=== PATIENT | female | born 1990 | race Caucasian/White ===

== ENCOUNTER 2017-03-04 14:02 | Emergency (ER) | payer MEDICARE, MEDICAID ==
[~2017-03-04] VITALS: Ht 157.5 cm; Wt 116.0 kg
[~2017-03-04 14:02] MED LIST: CARB200T PO; DOCU-30 PO; OMEP-110 PO; OXYC5CAP4 PO; PNV#1COM9 PO
[2017-03-04] MEDS ORDERED: PRED20TA PO (15:16)
[2017-03-04] MEDS ORDERED: SUCR1TAB PO (15:16)
[2017-03-04] MEDS ORDERED: CARB100T4 PO (15:16)
[2017-03-04] MEDS ORDERED: OMEP-110 PO (15:16)
[2017-03-04] MEDS ORDERED: CYCL5TAB PO (15:16)
[2017-03-04] MEDS ORDERED: TRAZ50TA18 PO (15:16)
[2017-03-04] MEDS ORDERED: ALBU6.7H PO (15:16)
[2017-03-04 15:50] LABS: PATH.CAST-FLAG NOT PRESENT; SPERM-FLAG NOT PRESENT; SRC-FLAG NOT PRESENT; XTAL-FLAG NOT PRESENT; YLC-FLAG NOT PRESENT
[2017-03-04 15:52] LABS: ASPARTATE AMINO TRANSFERASE 22 U/L (15-37); BLOOD UREA NITROGEN 17 mg/dL (7-18)
[2017-03-04 16:05] LABS: IS PT STATUS REG ER OR PRE ER? YES
[2017-03-04] MEDS ORDERED: OMNIPAQUE 350 MG/ML, 100ML BOTTLE ONE (16:59)
[2017-03-04 18:00] VITALS: BP 102/70
== END 2017-03-04 18:18 | disposition home or self-care (01) ==
LOC: ED 14:56
DX: R06.00 Dyspnea, unspecified (principal); N30.00 Acute cystitis without hematuria
CPT/HCPCS: 36415; 71275; 80053; 81001; 83690; 84484; 84703; 85025; 87086; 93005; 99285; Q9967

== ENCOUNTER → 2017-10-08 | Outpatient (CLI) | payer MEDICARE, MEDICAID ==
[~2017-10-08] MED LIST changes: +ALBU6.7H PO; +CARB100T4 PO; +CYCL5TAB PO; +DOCU-131 PO; -DOCU-30 PO; +GABA300C10 PO; +OXYC5CAP2 PO; -OXYC5CAP4 PO; +PRED20TA PO; +SUCR1TAB PO; +TRAZ50TA18 PO
[2017-10-08 13:11] LABS: BASOPHILS # (AUTO) 0.05 x10^3/uL (0-0.1); BASOPHILS % (AUTO) 0 % (0-1); EOSINOPHILS # (AUTO) 0.14 x10^3/uL (0-0.4); EOSINOPHILS % (AUTO) 1 % (1-7); LYMPHOCYTES # (AUTO) 2.75 x10^3/uL (1-3.4); LYMPHOCYTES % (AUTO) 27 % (22-44); MD NO; MEAN CORPUSCULAR HEMOGLOBIN 30.2 pg (27.0-34.8); MEAN CORPUSCULAR VOLUME 88.9 fL (80-100); MEAN PLATELET VOLUME 8.5 fL (7.4-10.4); MONOCYTES # (AUTO) 0.59 x10^3/uL (0.2-0.8); MONOCYTES % (AUTO) 6 % (2-9); NEUTROPHILS # (AUTO) 6.71 x10^3/uL (1.8-6.8); NEUTROPHILS % (AUTO) 66 % (42-75); PLATELET COUNT 326 x10^3/uL (130-400); RED BLOOD COUNT 5.39 x10^6/uL (3.82-5.3)
[2017-10-08 13:22] LABS: MICROSCOPIC INDICATED
[2017-10-08 13:23] LABS: CULTURE INDICATED? YES
[2017-10-08 13:25] LABS: ALANINE AMINOTRANSFERASE 31 U/L (12-78); ANION GAP 8 mmol/L (5-15); CALCIUM 8.8 mg/dL (8.5-10.1); CHLORIDE 107 mmol/L (98-107); CREATININE 0.82 mg/dL (0.55-1.02)
[2017-10-08 13:29] LABS: ALKALINE PHOSPHATASE 72 U/L (45-117); BILIRUBIN,TOTAL 0.5 mg/dL (0.2-1.0); TOTAL PROTEIN 7.9 g/dL (6.4-8.2)
== END | disposition home or self-care (01) ==
LOC: STAR 12:29
PROVIDERS: ATTEND Obstetrics & Gynecology
DX: Z01.818 Encounter for other preprocedural examination (principal); R82.99 Other abnormal findings in urine; Z90.722 Acquired absence of ovaries, bilateral
CPT/HCPCS: 36415; 80053; 81001; 84702; 85025; 87086

== ENCOUNTER 2017-10-17 05:38 | Day surgery (SDC) | payer MEDICARE, MEDICAID ==
[2017-10-08 13:43] VITALS: BP 110/64
[~2017-10-17] VITALS: Ht 157.5 cm; Wt 115.0 kg
[2017-10-17] MEDS ORDERED: LACTATED RINGERS 1,000 ML IV SCH (06:23)
[2017-10-17] MEDS ORDERED: LIDOCAINE 1%, 2ML SQ PRN (06:30)
[2017-10-17] MEDS ORDERED: BUPIVACAINE/PF 0.25% ONE (06:47)
[2017-10-17] MEDS ORDERED: SILVER NITRATE STICK TP ONE (06:47)
[2017-10-17] MEDS ORDERED: EPINEPHRINE 1 MG/ML, 1ML ONE (06:47)
[2017-10-17 06:56] LABS: HCG UR SG 1.028 (1.003-1.030)
[2017-10-17] MEDS ORDERED: MIDAZOLAM 1 MG/ML, 2ML ONE (07:10)
[2017-10-17] MEDS ORDERED: FENTANYL PF 100 MCG/2ML ONE ×3 (07:10→09:47)
[2017-10-17] MEDS ORDERED: KETOROLAC 30 MG/1 ML ONE (07:38)
[2017-10-17] MEDS ORDERED: hydrALAzine 20 MG/ML, 1ML IV PRN (08:30)
[2017-10-17] MEDS ORDERED: OXYcodone 5 MG/5 ML ORAL.SOL UDC PO PRN (08:30)
[2017-10-17] MEDS ORDERED: ONDANSETRON 2MG/ML, 2ML IVPush PRN (08:30)
[2017-10-17] MEDS ORDERED: METOPROLOL 1 MG/ML, 5ML IV PRN (08:30)
[2017-10-17] MEDS ORDERED: DIAZEPAM 5 MG/ML, 2ML IVPush PRN (08:30)
[2017-10-17] MEDS ORDERED: ALBUTEROL SULFATE 2.5 MG/3 ML NPPB PRN (08:30)
[2017-10-17] MEDS ORDERED: MIDAZOLAM 1 MG/ML, 2ML IV PRN (08:30)
[2017-10-17] MEDS ORDERED: ACETAMINOPHEN 325 MG TABLET PO PRN (08:30)
[2017-10-17] MEDS ORDERED: EPHEDRINE 50 MG/ML, 1ML IVPush PRN (08:30)
[2017-10-17] MEDS ORDERED: LABETALOL 5MG/ML, 20ML IV PRN (08:30)
[2017-10-17] MEDS ORDERED: PROMETHAZINE 25 MG/ML, 1ML IV PRN (08:30)
[2017-10-17] MEDS ORDERED: HYDROcodone/APAP 7.5-325MG/15ML UDC PO PRN (08:30)
[2017-10-17] MEDS ORDERED: MEPERIDINE/PF 25MG/0.5ML IVPush PRN (08:30)
[2017-10-17] MEDS ORDERED: HYDROmorphone 1 MG/ML, 1ML IV PRN (08:30)
[2017-10-17] MEDS ORDERED: ROCURONIUM 10 MG/ML,10ML ONE (09:27)
[2017-10-17] MEDS ORDERED: NEOSTIGMINE 1 MG/ML, 10ML ONE (09:27)
[2017-10-17] MEDS ORDERED: ONDANSETRON 2MG/ML, 2ML ONE (09:27)
[2017-10-17] MEDS ORDERED: DEXAMETHASONE 4 MG/ML, 1ML ONE (09:27)
[2017-10-17] MEDS ORDERED: PROPOFOL 10 MG/ML, 20ML ONE (09:27)
[2017-10-17] MEDS ORDERED: GLYCOPYRROLATE 0.2MG/1ML, 5ML ONE (09:27)
[2017-10-17] MEDS ORDERED: SUCCINYLCHOLINE 20 MG/ML, 10ML ONE (09:27)
[2017-10-17] MEDS ORDERED: ACETAMINOPHEN 325 MG TABLET ONE (09:47)
[2017-10-17] MEDS ORDERED: OXYcodone 5 MG/5 ML ORAL.SOL UDC ONE (09:47)
[2017-10-17] MEDS ORDERED: ACETAMINOPHEN 650 MG/20.3 ML UDC ONE (09:47)
[2017-10-17] MEDS: FENTANYL PF 100 MCG/2ML IV PRN ×2 (09:53→09:59)
== END 2017-10-17 11:00 ==
LOC: OUT 05:38
PROVIDERS: ATTEND Obstetrics & Gynecology
DX: Z30.2 Encounter for sterilization (principal); F32.9 Major depressive disorder, single episode, unspecified; Z90.49 Acquired absence of other specified parts of digestive tract; Z98.890 Other specified postprocedural states; J45.909 Unspecified asthma, uncomplicated; Z88.1 Allergy status to other antibiotic agents; Z91.010 Allergy to peanuts; Z88.8 Allergy status to other drugs, medicaments and biological substances; Z91.018 Allergy to other foods
CPT/HCPCS: 36415; 58661; 81025; 86850; 86900; 88302; J0171; J0330; J1100; J1885; J2250; J2405; J2704; J2710; J3010; J3490

== ENCOUNTER 2018-02-11 17:24 | Emergency (ER) | payer MEDICARE, MEDICAID ==
[~2018-02-11] VITALS: Ht 157.5 cm; Wt 118.5 kg
[2018-02-11 18:52] LABS: BASOPHILS # (AUTO) 0.04 x10^3/uL (0-0.1); BASOPHILS % (AUTO) 1 % (0-1); EOSINOPHILS # (AUTO) 0.18 x10^3/uL (0-0.4); EOSINOPHILS % (AUTO) 2 % (1-7); LYMPHOCYTES # (AUTO) 2.55 x10^3/uL (1-3.4); LYMPHOCYTES % (AUTO) 30 % (22-44); MD NO; MEAN CORPUSCULAR HEMOGLOBIN 30.4 pg (27.0-34.8); MEAN CORPUSCULAR HGB CONC 34.1 g/dL (32.4-35.8); MEAN CORPUSCULAR VOLUME 89.2 fL (80-100); MEAN PLATELET VOLUME 8.6 fL (7.4-10.4); MONOCYTES % (AUTO) 6 % (2-9); NEUTROPHILS # (AUTO) 5.15 x10^3/uL (1.8-6.8); NEUTROPHILS % (AUTO) 61 % (42-75); PLATELET COUNT 360 x10^3/uL (130-400); RED BLOOD COUNT 5.38 x10^6/uL (3.82-5.3); RED CELL DISTRIBUTION WIDTH 13.2 % (9.6-15.2)
[2018-02-11 19:02] LABS: ALANINE AMINOTRANSFERASE 46 U/L (12-78); ALBUMIN 3.8 g/dL (3.4-5.0); ANION GAP 9 mmol/L (5-15); CALCIUM 9.1 mg/dL (8.5-10.1); CHLORIDE 107 mmol/L (98-107); CREATININE 0.78 mg/dL (0.55-1.02)
[2018-02-11 19:07] LABS: ALKALINE PHOSPHATASE 64 U/L (45-117); BILIRUBIN,TOTAL 0.2 mg/dL (0.2-1.0); TOTAL PROTEIN 7.4 g/dL (6.4-8.2)
[2018-02-11] MEDS ORDERED: OXYC5CAP2 PO (20:10)
[2018-02-11 20:59] LABS: CULTURE INDICATED? NO; MICROSCOPIC AUTO
[2018-02-11] MEDS ORDERED: OXYcodone/APAP 5/325MG TABLET PO ONE (21:00)
[2018-02-11] MEDS ORDERED: OXYcodone/APAP 5/325MG TABLET ONE (21:06)
[2018-02-11 21:30] VITALS: BP 128/83
== END 2018-02-11 21:38 | disposition home or self-care (01) ==
LOC: ED 21:32
DX: N93.8 Other specified abnormal uterine and vaginal bleeding (principal); Z98.51 Tubal ligation status; Z90.49 Acquired absence of other specified parts of digestive tract; F17.200 Nicotine dependence, unspecified, uncomplicated
CPT/HCPCS: 36415; 76830; 80053; 81001; 84703; 85025; 99285

== ENCOUNTER → 2018-04-06 | Outpatient (CLI) | payer MEDICARE, MEDICAID ==
[2018-04-06 14:07] LABS: BASOPHILS # (AUTO) 0.04 x10^3/uL (0-0.1); BASOPHILS % (AUTO) 0 % (0-1); EOSINOPHILS # (AUTO) 0.23 x10^3/uL (0-0.4); EOSINOPHILS % (AUTO) 2 % (1-7); LYMPHOCYTES # (AUTO) 2.63 x10^3/uL (1-3.4); LYMPHOCYTES % (AUTO) 24 % (22-44); MD NO; MEAN CORPUSCULAR HEMOGLOBIN 30.1 pg (27.0-34.8); MEAN CORPUSCULAR HGB CONC 34.1 g/dL (32.4-35.8); MEAN PLATELET VOLUME 8.4 fL (7.4-10.4); MONOCYTES # (AUTO) 0.41 x10^3/uL (0.2-0.8); MONOCYTES % (AUTO) 4 % (2-9); NEUTROPHILS # (AUTO) 7.46 x10^3/uL (1.8-6.8); NEUTROPHILS % (AUTO) 69 % (42-75); PLATELET COUNT 330 x10^3/uL (130-400); RED BLOOD COUNT 5.13 x10^6/uL (3.82-5.3); RED CELL DISTRIBUTION WIDTH 12.9 % (9.6-15.2)
[2018-04-06 14:20] LABS: ALBUMIN 3.7 g/dL (3.4-5.0); ANION GAP 10 mmol/L (5-15); CALCIUM 8.9 mg/dL (8.5-10.1); CHLORIDE 107 mmol/L (98-107)
[2018-04-06 14:23] LABS: CULTURE INDICATED? YES; MICROSCOPIC INDICATED
[2018-04-06 14:28] LABS: ALANINE AMINOTRANSFERASE 46 U/L (12-78); ALKALINE PHOSPHATASE 66 U/L (45-117); BILIRUBIN,TOTAL 0.6 mg/dL (0.2-1.0); CREATININE 0.89 mg/dL (0.55-1.02); TOTAL PROTEIN 7.1 g/dL (6.4-8.2)
== END | disposition home or self-care (01) ==
LOC: STAR 13:16
PROVIDERS: ATTEND Obstetrics & Gynecology
DX: Z01.818 Encounter for other preprocedural examination (principal); N92.0 Excessive and frequent menstruation with regular cycle; N85.9 Noninflammatory disorder of uterus, unspecified
CPT/HCPCS: 36415; 80053; 81001; 84702; 85025; 87086

== ENCOUNTER 2018-04-21 10:32 | Day surgery (SDC) | payer MEDICARE, MEDICAID ==
[2018-04-06 13:43] VITALS: BP 118/80
[~2018-04-21] VITALS: Ht 157.5 cm; Wt 116.8 kg
[~2018-04-21 10:32] MED LIST changes: +BUPIVACAINE/PF-EPI 0.25% 1:200K ONE; +FENTANYL PF 250 MCG/5ML ONE; +MIDAZOLAM 1 MG/ML, 2ML ONE; +SILVER NITRATE STICK TP ONE; +TRAZ-136 PO; -TRAZ50TA18 PO
[2018-04-21 11:28] LABS: HCG UR SG 1.026 (1.003-1.030)
[2018-04-21 11:51] LABS: AMPHETAMINE SCREEN, URINE Negative (Negative); BARBITURATE SCREEN, URINE Negative (Negative); BENZODIAZEPINE SCREEN, URINE Negative (Negative); CANNABINOID SCREEN, URINE Negative (Negative); COCAINE SCREEN, URINE Negative (Negative); METHADONE SCREEN, URINE Negative (Negative)
[2018-04-21 11:52] LABS: OPIATE SCREEN, URINE Negative (Negative)
[2018-04-21] MEDS ORDERED: BUPIVACAINE/PF-EPI 0.25% 1:200K INFIL ONE (11:58)
[2018-04-21] MEDS ORDERED: GABAPENTIN 300 MG CAPSULE ONE (12:29)
[2018-04-21] MEDS ORDERED: ACETAMINOPHEN 500 MG TABLET PO ONE (12:30)
[2018-04-21] MEDS ORDERED: GABAPENTIN 300 MG CAPSULE PO ONE (12:30)
[2018-04-21] MEDS ORDERED: DEXAMETHASONE 4 MG/ML, 1ML ONE (12:40)
[2018-04-21] MEDS ORDERED: PROPOFOL 10 MG/ML, 20ML ONE (12:40)
[2018-04-21] MEDS ORDERED: ROCURONIUM 10MG/ML,5ML ONE (12:40)
[2018-04-21] MEDS ORDERED: LABETALOL 5MG/ML, 20ML IV PRN (13:00)
[2018-04-21] MEDS ORDERED: MEPERIDINE/PF 25MG/0.5ML IVPush PRN (13:00)
[2018-04-21] MEDS ORDERED: PROMETHAZINE 25 MG/ML, 1ML IV PRN (13:00)
[2018-04-21] MEDS ORDERED: ALBUTEROL SULFATE 2.5 MG/3 ML NPPB PRN (13:00)
[2018-04-21] MEDS ORDERED: HYDROmorphone 1 MG/ML, 1ML IV PRN (13:00)
[2018-04-21] MEDS ORDERED: FENTANYL PF 100 MCG/2ML IV PRN (13:00)
[2018-04-21] MEDS ORDERED: hydrALAzine 20 MG/ML, 1ML IV PRN (13:00)
[2018-04-21] MEDS ORDERED: OXYcodone 5 MG/5 ML ORAL.SOL UDC PO PRN (13:00)
[2018-04-21] MEDS ORDERED: LORazepam 2 MG/ML, 1ML IVPush PRN (13:00)
[2018-04-21] MEDS ORDERED: SUGAMMADEX 200 MG/2 ML IVPush ONE (13:17)
[2018-04-21] MEDS ORDERED: ONDANSETRON 2MG/ML, 2ML ONE (13:41)
[2018-04-21] MEDS ORDERED: MEPERIDINE/PF 50 MG/ML ONE (13:45)
[2018-04-21] MEDS ORDERED: OXYcodone 5 MG/5 ML ORAL.SOL UDC ONE (14:07)
[2018-04-21] MEDS ORDERED: ONDANSETRON 2MG/ML, 2ML IVPush ONE (14:30)
== END 2018-04-21 15:10 | disposition home or self-care (01) ==
LOC: OUT 10:32
PROVIDERS: ATTEND Obstetrics & Gynecology
DX: N92.0 Excessive and frequent menstruation with regular cycle (principal); F32.9 Major depressive disorder, single episode, unspecified; E66.9 Obesity, unspecified; Z30.430 Encounter for insertion of intrauterine contraceptive device; Z90.49 Acquired absence of other specified parts of digestive tract; Z90.722 Acquired absence of ovaries, bilateral
CPT/HCPCS: 36415; 58300; 58558; 80307; 81025; 86850; 86900; 88305; J1100; J2175; J2250; J2405; J2704; J3010; J7298

== ENCOUNTER 2018-08-08 13:05 | Emergency (ER) | payer MEDICARE, MEDICAID ==
[~2018-08-08] VITALS: Ht 157.5 cm; Wt 115.6 kg
[~2018-08-08 13:05] MED LIST changes: -BUPIVACAINE/PF-EPI 0.25% 1:200K ONE; -FENTANYL PF 250 MCG/5ML ONE; -MIDAZOLAM 1 MG/ML, 2ML ONE; -SILVER NITRATE STICK TP ONE
[2018-08-08] MEDS ORDERED: KETOROLAC 30 MG/1 ML ONE (13:50)
[2018-08-08] MEDS ORDERED: METOCLOPRAMIDE 5 MG/ML, 2ML ONE (13:50)
[2018-08-08] MEDS ORDERED: DIPHENHYDRAMINE 50 MG/ML, 1ML ONE (13:50)
[2018-08-08] MEDS ORDERED: DIPHENHYDRAMINE 50 MG/ML, 1ML IVPush ONE (14:00)
[2018-08-08] MEDS ORDERED: SODIUM CHLORIDE FLUSH 10ML SYR IVF ONE (14:00)
[2018-08-08] MEDS ORDERED: METOCLOPRAMIDE 5 MG/ML, 2ML IVPush ONE (14:00)
[2018-08-08] MEDS ORDERED: KETOROLAC 30 MG/1 ML IVPush ONE (14:00)
[2018-08-08 14:11] LABS: BASOPHILS # (AUTO) 0.07 x10^3/uL (0-0.1); BASOPHILS % (AUTO) 1 % (0-1); EOSINOPHILS # (AUTO) 0.13 x10^3/uL (0-0.4); EOSINOPHILS % (AUTO) 1 % (1-7); LYMPHOCYTES # (AUTO) 2.96 x10^3/uL (1-3.4); LYMPHOCYTES % (AUTO) 25 % (22-44); MD NO; MEAN CORPUSCULAR HEMOGLOBIN 30.3 pg (27.0-34.8); MEAN CORPUSCULAR HGB CONC 34.2 g/dL (32.4-35.8); MEAN CORPUSCULAR VOLUME 88.6 fL (80-100); MEAN PLATELET VOLUME 8.5 fL (7.4-10.4); MONOCYTES % (AUTO) 5 % (2-9); NEUTROPHILS # (AUTO) 7.96 x10^3/uL (1.8-6.8); NEUTROPHILS % (AUTO) 68 % (42-75); PLATELET COUNT 355 x10^3/uL (130-400); RED BLOOD COUNT 5.15 x10^6/uL (3.82-5.3)
[2018-08-08 14:20] LABS: HCG UR SG 1.032 (1.003-1.030)
[2018-08-08 14:23] LABS: ALANINE AMINOTRANSFERASE 64 U/L (12-78); ALBUMIN 4.2 g/dL (3.4-5.0); ANION GAP 7 mmol/L (5-15); CALCIUM 9.1 mg/dL (8.5-10.1); CHLORIDE 108 mmol/L (98-107); CREATININE 0.92 mg/dL (0.55-1.02)
[2018-08-08 14:26] LABS: ALKALINE PHOSPHATASE 74 U/L (45-117); BILIRUBIN,TOTAL 0.5 mg/dL (0.2-1.0); TOTAL PROTEIN 8.2 g/dL (6.4-8.2)
[2018-08-08 14:29] LABS: CULTURE INDICATED? YES; MICROSCOPIC INDICATED
[2018-08-08 14:41] VITALS: BP 119/96
== END 2018-08-08 15:19 | disposition home or self-care (01) ==
LOC: ED 14:52
DX: R10.9 Unspecified abdominal pain (principal); R51 Headache
CPT/HCPCS: 36415; 76830; 80053; 81001; 81025; 83690; 85025; 87086; 96374; 96375; 99285; J1200; J1885; J2765